=== PATIENT | male | born 1955 | race Caucasian/White ===

== ENCOUNTER 2019-05-04 13:26 | Day surgery (SDC) | payer BC ==
[2019-05-04] MEDS ORDERED: PROPOFOL 20 ML ONE ×5 (13:47→14:31)
[2019-05-04 13:58] VITALS: BMI 52.4
[2019-05-04] MEDS ORDERED: GLYCOPYRROLATE 0.2 MG/1 ML VIAL ONE (14:31)
[2019-05-04 15:17] VITALS: TEMP 97.6
[2019-05-04 15:32] VITALS: BP 139/73; PULSE 68
--- NOTE | 2019-05-08 15:44 | PATH ---
Surgical Pathology Report Patient Name: KAITLIN MOREIRA [facility]. Rec. #: [id number] /Age/Gender: 1955 (Age: 63) / M Account: [id number] Location: [facility] Taken: 05/04/2019 Received: 05/04/2019 Reported: 05/08/2019 Physicians: Stevie Wilkinson M.D. Specimen(s) Received POLYPS HEPATIC FLEXURE Clinical History History of polyps Postoperative diagnosis: Polyps, diverticulosis Final Diagnosis HEPATIC FLEXURE, POLYPS, BIOPSY: TUBULAR ADENOMA (X2). Electronically Signed Joyce Camacho M.D. Gross Description Received in formalin, labeled "polyps hepatic flexure" are 2 be, irregular portions of soft tissue measuring 0.3 and 0.4 cm. in greatest dimension. The specimens are submitted in toto in one cassette. 05/07/201905/07/2019
== END 2019-05-04 15:35 | disposition home or self-care (01) ==
LOC: FASU-ENDO 13:26
PROVIDERS: ATTEND Internal Medicine Gastroenterology
PROC: 0DBL8ZX Excision of Transverse Colon, Via Natural or Artificial Opening Endoscopic, Diagnostic (ICD-10-PCS; principal; 2019-05-04 14:24)
DX: Z86.010 Personal history of colon polyps (principal); D12.3 Benign neoplasm of transverse colon; K57.30 Diverticulosis of large intestine without perforation or abscess without bleeding
CPT/HCPCS: 88305-TC